=== PATIENT | female | born 1955 | race Caucasian/White ===

== ENCOUNTER → 2024-08-26 08:20 | Outpatient (REF) | payer MEDICARE, SELFPAY | LOC: RAD 08:20 | PROVIDERS: ATTENDING PHYSICIAN Family Medicine | DX: J45.21 Mild intermittent asthma with (acute) exacerbation (principal); R06.2 Wheezing; R07.89 Other chest pain | CPT/HCPCS: 71046; 93005 ==

== ENCOUNTER 2024-09-20 17:29 | Emergency (ER) | payer MEDICARE, OTHER, SELFPAY ==
[2024-09-20 17:39] VITALS: BP 149/94
[2024-09-20 18:18] LABS: % Eosinophils 3.2 % (0-6); % Immature Granulocytes 0.1 % (0-0.5); % Lymphocytes 28.6 % (20.5-51.1); % Monocytes 6.5 % (1.7-9.3); % Neutrophils 60.6 % (42.2-75.2); Absolute Basophils 0.1 10^3/uL (0-0.2); Absolute Eosinophils 0.2 10^3/uL (0-0.7); Absolute Monocytes 0.5 10^3/uL (0.1-0.6); Absolute Neutrophils 4.2 10^3/uL (1.4-6.5); Hematocrit 40.8 % (37.0-47.0); Hemoglobin 14.5 g/dL (12.0-16.0); Mean Corp Hgb Conc. 35.5 g/dL (33.0-37.0); Mean Corpuscular Hgb 31.7 pg (27.0-31.0); Mean Corpuscular Volume 89.3 fL (81.0-99.0); Mean Platelet Volume 8.3 fL (7.4-10.4); Nucleated Red Blood Cells % 0 %; Platelet Count 274 10^3/uL (130-400); Red Blood Cell Count 4.57 10^6/uL (4.20-5.40); Red Cell Dist. Width 12.3 % (11.5-14.5); White Blood Cell Count 6.9 10^3/uL (4.8-10.8)
[2024-09-20 18:31] LABS: ALT (SGPT) 28 U/L (0-35); AST (SGOT) 27 U/L (14-36); Albumin 4.6 g/dl (3.5-5.0); Alkaline Phosphatase 80 U/L (38-126); Blood Urea Nitrogen 30 mg/dl (7-17); Calcium 9.7 mg/dl (8.4-10.2); Carbon Dioxide 28 mmol/L (22-30); Chloride 101 mmol/L (98-107); Glucose 115 mg/dl (70-99); Potassium 4.2 mmol/L (3.5-5.1); Sodium 139 mmol/L (135-145); Total Bilirubin 0.3 mg/dl (0.2-1.3); Total Protein 7.1 g/dl (6.3-8.2); eGFR 53.72
[2024-09-20 18:34] LABS: Troponin I < 0.012 ng/ml
[2024-09-20 20:20] VITALS: BP 144/90
--- NOTE | 2024-09-20 22:04 | ED.GENMED ---
History of Present Illness
General
Chief Complaint: Fall
Source: patient
Exam Limitations: none
Time Seen by Provider: 09/20/24 20:17
Nursing documentation reviewed up to this point in time: agreed with
History of Present Illness
History of Present Illness:
Patient states she had a trip and fall on Friday. Fell onto her left side injurying left lat ribs Evaluated at , neg for fracture. Later that day she hit her head, sustained small lac to forehed. No LOC. [place] well until today. States she was
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 Advised by PCP to come to ED. She is awake and alert, in no distress.
Past History
Past History
ED Past Medical History: Other (uti)
ED Past Surgical History: Appendectomy and Cholecystectomy; Negative Bowel resection, Gynecological or Urological
Social History
Tobacco: Non-smoker
Alcohol: None
Drug: None
Personal:
Living: with family
Employment: Retired
Review of Systems
Review of Systems
Allergies reviewed?: Yes
All Other Systems: ROS reviewed and negative except as documented in HPI and ROS
Constitutional: Reports no symptoms
EENT: Reports no symptoms
Respiratory: Reports no symptoms
Cardiac: Reports no symptoms
ABD/GI: Reports no symptoms
: Reports no symptoms
Musculoskeletal: Reports joint pain (pain to left lat ribs)
Skin: Reports other (Small superficial abrasion mid forehead)
Neurological: Reports dizzy
Psychiatric: Reports no symptoms
Phy Exam
General Physical Exam
General Presentation: well appearing and no apparent distress
General age: appears stated age
General Skin: warm and dry
General Habitus: normal
General Mental: alert
Eye Exam
Eye Exam: PERRL, EOMI and conjunctiva normal
Neurological Exam
Neurological Exam: alert, oriented x3, CN II-XII intact, no motor deficits, no sensory deficits and speech normal
Anant Coma Scale
Eye Opening: Spontaneous
Verbal Response: Oriented
Motor Response: Obeys Commands
GCS Total Score: 15
Musculoskeletal Exam
Musculoskeletal Exam: full ROM and neuro vasc intact
Skin Exam
Skin Exam: normal color, warm/dry and no rash
Psychiatric Exam
Psychiatric Exam: normal mood/affect
Course
Orders/Labs/Results
Orders:
Orders
09/20/24 17:43
Electrocardiogram (*1) Urgent
Reason for Study: Chest Pain
EKG- Treatment ONCE
09/20/24 18:03
Complete Blood Count/With Diff Urgent
Comprehensive Metabolic Panel Urgent
Troponin I Urgent
09/20/24 20:39
CT Head W/o Iv Contrast Urgent
Comment:
Reason For Exam: trauma, dizzy
Abnormal Lab Results
09/20/24
18:03
MCH 31.7 H pg
(27.0-31.0)
BUN 30 H mg/dl
(7-17)
Creatinine 1.1 H mg/dL
(0.6-1.0)
Glucose 115 H mg/dl
(70-99)
09/20/24 18:03
09/20/24 18:03
Vital Signs
Initial and Last Documented VS:
Initial Vital Signs
Temp Pulse Resp BP Pulse Ox
98.1 F 81 16 149/94 98
09/20/24 17:39 09/20/24 17:39 09/20/24 17:39 09/20/24 17:39 09/20/24 17:39
Last Documented Vital Signs
Temp Pulse Resp BP Pulse Ox
98.1 F 73 16 144/90 97
09/20/24 17:39 09/20/24 20:20 09/20/24 17:39 09/20/24 20:20 09/20/24 20:20
*Radiology
Radiology exam reviewed: radiology read reviewed
*Pulse Oximetry
Patient hypoxic: no
*Critical Care Note
Total Time (30-74mins, 75-104mins- exclusive of procedures): Not Applicable
ED Attending Note
-
Portions of this chart may have been created with voice recognition software.� Occasional wrong word or��sound alike� substitutions may have occurred due to the inherent limitations of voice recognition software.
Discharge Plan
Departure
Patient Disposition: Home (Routine Discharge)
Date of Disposition: 09/20/24
Time of Disposition: 22:03
Patient with high blood pressure during this ER visit?: No
Condition: Good
Covid-19: Not Applicable
Discharge Problem:
Dizziness
Instructions: Head Injury in Adults (DC)
Prescriptions:
No Action
ciprofloxacin HCl [Cipro] 500 mg tablet
500 mg PO BID Qty: 20 0RF
metronidazole 500 mg tablet
500 mg PO TID 10 Days Qty: 30 0RF
Referrals:
Lynne Leo, DO [Family Provider] - Call in 1-3 days for appt
Interventions
Interventions:
*Risk Screen - Suicide Last Done: 09/20/24 17:43
*General Assessment Last Done: 09/20/24 20:20
*Neglect/Abuse Screening Last Done: 09/20/24 17:43
*ED COVID-19 Vaccine History Last Done: 09/20/24 20:20
*Nursing Disposition Last Done: 09/20/24 22:05
ED-Musculoskeletal Assessment Last Done: 09/20/24 20:22
ED- Neurological Assessment Last Done: 09/20/24 20:22
ED-Skin Assessment Last Done: 09/20/24 20:22
Discharge Date and Time
Print Language: ANDORRAN
[2024-09-20 22:09] VITALS: BP 124/83
== END 2024-09-20 22:15 | disposition home or self-care (01) ==
LOC: EMR 17:29
PROVIDERS: Emergency Medicine; EMERGENCY PHYSICIAN Student in an Organized Health Care Education/Training Program; FAMILY PHYSICIAN Family Medicine
DX: R42 Dizziness and giddiness (principal); S00.91XA Abrasion of unspecified part of head, initial encounter; W01.0XXA Fall on same level from slipping, tripping and stumbling without subsequent striking against object, initial encounter; R29.6 Repeated falls
CPT/HCPCS: 99285; 70450; 80053; 84484; 85025; 93005

== ENCOUNTER → 2025-05-14 09:49 | Outpatient (REF) | payer MEDICARE, OTHER, SELFPAY ==
[2025-05-14 12:37] LABS: ALT (SGPT) 24 U/L (0-35); AST (SGOT) 24 U/L (14-36); Albumin 4.8 g/dl (3.5-5.0); Alkaline Phosphatase 70 U/L (38-126); Blood Urea Nitrogen 20 mg/dl (7-17); Calcium 10.1 mg/dl (8.4-10.2); Carbon Dioxide 26 mmol/L (22-30); Chloride 106 mmol/L (98-107); Glucose 94 mg/dl (70-99); Potassium 4.5 mmol/L (3.5-5.1); Sodium 139 mmol/L (135-145); Total Protein 7.3 g/dl (6.3-8.2); eGFR > 60.00
[2025-05-14 13:01] LABS: TSH 2.91 uIU/ml (0.47-4.68)
== END ==
LOC: REG 09:49
PROVIDERS: ATTENDING PHYSICIAN Family Medicine
DX: K52.9 Noninfective gastroenteritis and colitis, unspecified (principal); Z79.899 Other long term (current) drug therapy
CPT/HCPCS: 36415; 80053; 84443

== ENCOUNTER → 2025-05-16 11:26 | Outpatient (REF) | payer MEDICARE, OTHER, SELFPAY | LOC: RAD 11:26 | PROVIDERS: ATTENDING PHYSICIAN Family Medicine | DX: K52.9 Noninfective gastroenteritis and colitis, unspecified (principal); R19.4 Change in bowel habit; R19.8 Other specified symptoms and signs involving the digestive system and abdomen | CPT/HCPCS: 74177; Q9967 ==